=== PATIENT | male | born 1970 | race Caucasian/White ===

== ENCOUNTER 2021-09-02 13:41 | Emergency (ER) | payer BC ==
[2021-09-02] MEDS: Hydrochlorothiazide 25 MG Tab PO ONE (14:28)
[2021-09-02] MEDS: LORazepam 1 MG Tab PO ONE (14:28)
[2021-09-02] MEDS: LORazepam 1 MG Tab ONE (14:34)
[2021-09-02 14:36] LABS: TROPONIN I HIGH SENSITIVITY 9.6 pg/ml (<=60.4)
== END 2021-09-02 15:12 | disposition home or self-care (01) ==
LOC: LB.ED 13:41
DX: I16.0 Hypertensive urgency (principal); Z88.0 Allergy status to penicillin; Z79.82 Long term (current) use of aspirin; Z88.8 Allergy status to other drugs, medicaments and biological substances
CPT/HCPCS: 36415; 80048; 80307; 81001; 84484; 85025; 87086; 93005; 99283; A9270; 93010; 99282